=== PATIENT | male | born 1965 | race Hispanic/Latino ===

== ENCOUNTER 2018-07-12 18:49 | Inpatient (IN) ==
[2018-07-12] MEDS ORDERED: DILAUDID IV ONE ×2 (21:28→23:21)
--- NOTE | 2018-07-12 21:53 | PROVIDER DOCUMENTATION ---
This chart was entered by Renata Edmonds Scribe, acting as scribe for Sree Pacheco MD. HPI-Abdominal Pain/GI Problem - General Chief Complaint: Abdominal Pain Stated Complaint: ABD PAIN Time Seen by Provider: 07/12/18 19:25 Source: patient Allergies/Adverse Reactions: Patient Allergies Allergy/AdvReac Type Severity Reaction Status Date / Time No Known Allergies Allergy Verified 07/12/18 20:31 - History of Present Illness-ABD Nature of Presenting Problems: 52 yom c/o over 1 wk of nausea and abd pain ruq that rad into chest. pt was ad mitted to [facility] on wednesday and d/c yest. had ct done and was told he had gall stones. pt had appt today w/ dr and is getting gall bladder removed wednesday. pt denies diarrhea and vomiting. Abdominal Pain Onset Location: reports: RUQ Pain Radiation: reports: chest Quality of Pain: reports: aching Review of Systems - Adult - REVIEW OF SYSTEMS - ADULT Constitutional: reports: no symptoms reported. denies: chills, fever, fatique Eyes: reports: no symptoms reported Ears, Nose, Mouth & Throat: reports: no symptoms reported Cardiovascular: reports: no symptoms reported Respiratory: reports: no symptoms reported Gastrointestinal: reports: see HPI, abdominal pain (ruq), nausea. denies: constipation, diarrhea, difficulty swallowing, poor appetite, vomiting Genitourinary: reports: no symptoms reported Musculoskeletal: reports: no symptoms reported Integumentary: reports: no symptoms reported Neurological: reports: no symptoms reported Psychiatric: reports: no symptoms reported Endocrine: reports: no symptoms reported Hematologic/Lymphatic: reports: no symptoms reported Allergic/Immunologic: reports: no symptoms reported All Other Systems: Reviewed and Negative Past History - Adult - PAST MEDICAL HISTORY-ADULT Review of Records: reports: Old Records Reviewed, Nursing Assessment Review, Me dications Reviewed, Social history reviewed & non-contributory. Major Childhood Illnesses: reports: denies history Cardiovascular: reports: denies history Respiratory: reports: denies history Gastrointestinal: reports: denies history Obstetrical/Gynecological: reports: denies history Genitourinary: reports: denies history Musculoskeletal: reports: denies history Neurological: reports: denies history Endocrine/Immune: reports: denies history Other Conditions: reports: denies history - PRIOR SURGERIES/PROCEDURES Surgical/Procedure History: reports: none - IMMUNIZATION STATUS Childhood Immunizations: See Nurse Assessment Flu Vaccine: See Nurse Assessment - FAMILY HISTORY Family History: reviewed, not pertinent - SOCIAL HISTORY Smoking: non-smoker Substance Use: none/never Physical Exam-General - PHYSICAL EXAM-ADULT Initial Vital Signs Reviewed: Yes - CONSTITUTIONAL General Appearance: appears well, alert, mild distress, obese. negative: slow to respond, obtunded, combative - EYES Eyes: PERRL/EOMI, pink conjunctivae - HEAD, EARS, NOSE, MOUTH & THROAT HENMT: normocephalic/atraumatic, moist mucous membranes, normal ENT inspection - NECK Neck: non-tender, full range of motion, supple, normal inspection - RESPIRATORY Respiratory: chest non-tender, lungs clear, normal breath sounds - CARDIOVASCULAR Cardiovascular: normal peripheral pulses, regular rate, rhythm, no edema, no gallop, no JVD, no murmur. negative: JVD, bradycardia, tachycardia - GASTROINTESTINAL (ABDOMEN) Abdominal Exam: normal bowel sounds, soft, no organomegaly, no pulsatile mass, tenderness (ruq to palp). negative: non tender, abdominal bruit, abnormal bowel sounds, distended, guarding, rigid - LYMPHATIC Lymphatic: no adenopathy - MUSCULOSKELETAL Back Exam: normal inspection, no CVA tenderness, no vertebral tenderness Extremity: normal range of motion, non-tender, normal inspection Peripheral Pulses: radial (R): 2+, radial (L): 2+ - SKIN Integumentary: normal color, normal turgor, warm/dry - NEUROLOGIC Neurologic: grossly normal, no motor/sensory deficits - PSYCHIATRIC Psych/Mental Status: normal mood/affect, normal thought content, normal thought process, oriented x 3 Progress - PLAN OF CARE/RESULTS Progress/Plan/Lab Results: Vital Signs - 8 hr 07/12/18 19:04 Temperature 98.9 F Pulse Rate 90 Respiratory Rate 15 Blood Pressure 167/97 O2 Sat by Pulse Oximetry 98 Orders Category Date Time Status Saline Loc DIRECTED Care 07/12/18 21:18 Active NPO Diet 07/12/18 21:18 Active CBC WITH ELECTRONIC DIFF [HEME] Stat Lab 07/12/18 21:18 Uncollected COMPREHENSIVE METABOLIC PANEL [CHEM] Stat Lab 07/12/18 21:18 Uncollected LIPASE [CHEM] Stat Lab 07/12/18 21:18 Uncollected URINALYSIS W/POSS RFLX CULT [URINALYSIS] Stat Lab 07/12/18 21:18 Uncollected Result Diagrams: 07/12/18 22:50 07/12/18 22:50 - ULTRASOUND (By Radiology) 1 US Study: Gallbladder US Results: acute cholecytitis, gallstones, very large gallbladder - CONSULTS/PCP/HOSPITALIST Notification #1 *Consult/PCP/Hospitalist*: Dr. Ignacio, surgeon lead sales consultant Time Discussed: 00:30 Reason/Comments: admit , start Zosyn Consult Disposition: Admit Departure - Departure Date of Disposition Decision: 07/13/18 Time of Disposition Decision: 00:32 DIAGNOSIS: Acute cholecystitis Cholelithiasis Qualifiers: Cholelithiasis location: gallbladder Cholecystitis presence: with cholecystitis Cholecystitis acuity: acute Biliary obstruction: without biliary obstruction Qualified Code(s): K80.00 - Calculus of gallbladder with acute cholecystitis without obstruction Disposition: ADMITTED INPATIENT 09 Certified Medical Emergency: Emergent Condition: Stable Referrals and Follow-Ups: Roque Cowart [Primary Care Provider] - - Critical Care Note This patient required my direct & personal management of CC.: No Attestation - Physician/ JASMIN Attestation Patient care was provided by Advanced Practice Provider:: No The physician spent face to face time with patient:: Yes Advanced Practice Provider documentation review:: Supervising physician onsite and consulted in the evaluation and care of this patient. The physician did have a face to face encounter with the patient. This chart was documented by the indicated scribe, (Renata Edmonds Scribe) and accurately reflects the services I performed and decisions made by me, Sree Pacheco MD, as attested by the provider's signature.
[2018-07-12 23:08] LABS: BASO# 0.02 X1000 (0.0-0.2); BASO% 0.1 % (0.0-0.8); EOS% 0.6 % (0.0-10.0); HEMATOCRIT 30.9 % (42.0-52.0); HEMOGLOBIN 10.7 g/dL (14.0-18.0); IMM GRAN# 0.06 X1000 (0.0-0.04); IMM GRAN% 0.4 % (0.0-0.5); LYMPH# 1.21 X1000 (1.2-3.4); LYMPH% 7.6 % (20.5-51.1); MCH 25.2 PG (27-31); MCHC 34.6 g/dL (33-37); MCV 72.7 FL (81-99); MONO# 0.72 X1000 (0.11-0.59); MONO% 4.5 % (1.7-9.3); MPV 9.4 FL (7.4-10.4); NEUT# 13.72 X1000 (1.4-6.5); NEUT% 86.8 % (42.2-75.2); PLT 555 X1000 (130-400); RBC 4.25 XMIL (4.7-6.1); RDW 12.7 % (11.5-14.5); WBC 15.83 X1000 (4.8-10.8)
[2018-07-12 23:28] LABS: ALB/GLOB RATIO 0.4; ALBUMIN 1.9 g/dL (3.5-5.0); CALCIUM 8.1 mg/dL (8.8-10.2); CREATININE 1.9 mg/dL (0.7-1.2); POTASSIUM 2.9 mmol/L (3.5-5.1); TOTAL BILIRUBIN 0.55 mg/dL (0.20-1.00); TOTAL PROTEIN 6.2 g/dL (6.3-8.3)
[2018-07-12] MEDS ORDERED: ZOSYN 3.375 GM in NS 50 ML IV ONE (23:57)
[2018-07-13] MEDS ORDERED: ZOFRAN IV PRN (00:32)
[2018-07-13] MEDS ORDERED: NS 1,000 ML IV ONE (00:32)
[2018-07-13] MEDS ORDERED: DILAUDID IV PRN (00:32)
[2018-07-13] MEDS: ZOSYN 3.375 GM in NS 50 ML IV SCH ×4 (01:28→18:38)
[2018-07-13 01:40] LABS: URINE SOURCE CLEAN CATCH
[2018-07-13 01:46] LABS: BILIRUBIN URINE NEGATIVE (NEGATIVE); BLOOD URINE MODERATE (NEGATIVE); COLOR YELLOW; GLUCOSE URINE 500 mg/dL (NEGATIVE); KETONE URINE TRACE mg/dL (NEGATIVE); LEUKOCYTES URINE NEGATIVE (NEGATIVE); NITRITE URINE NEGATIVE (NEGATIVE); PH URINE 6.5; PROTEIN URINE 300 mg/dL (NEGATIVE); SP GRAVITY URINE 1.009; TURBIDITY URINE CLEAR (CLEAR); UROBILINOGEN URINE NORMAL (NORMAL)
[2018-07-13 01:48] LABS: UR EPITHELIAL CELLS <10 /HPF (<10); URINE BACTERIA NEGATIVE /HPF; URINE RBC <10 /HPF (<10)
[2018-07-13] MEDS ORDERED: PNEUMOVAX 23 IM ONE (02:23)
[2018-07-13 02:52] LABS: URINE CASTS NONE SEEN; URINE CRYSTALS NONE SEEN; URINE SMALL ROUND CELLS NONE SEEN; URINE YEAST NONE SEEN
[2018-07-13] MEDS ORDERED: SODIUM CHLORIDE 0.9% ONE (06:36)
[2018-07-13] MEDS ORDERED: XYLOCAINE-MPF 1% ONE (06:36)
[2018-07-13] MEDS ORDERED: SENSORCAINE-MPF 0.5%/EPI 1:200,000 ONE (06:36)
[2018-07-13] MEDS ORDERED: LR 1,000 ML ONE (06:36)
--- NOTE | 2018-07-13 06:36 | HISTORY AND PHYSICAL ---
DATE: 07/13/2018 HISTORY OF PRESENT ILLNESS: This is a 52-year-old gentleman who has had a several day history of abdominal discomfort. He presented to the Emergency Department after these symptoms worsen. His CT scan and ultrasound was performed that suggests cholecystitis with gallstones and enlarged gallbladder. He was started on antibiotics. He feels some better now. He prior to this has been in his usual state of health. No fevers. No tachycardia documented. MEDICAL HISTORY: 1. Hypertension. 2. Hyperlipidemia. 3. Diabetes. SURGICAL HISTORY: He has had a brain tumor resection. SOCIAL HISTORY: No tobacco, alcohol, or drugs. He is . 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 FAMILY HISTORY: Reviewed, noncontributory. PHYSICAL EXAMINATION: Vital signs: Temperature 98.9, pulse 80, blood pressure 140/74, oxygen saturation 97%. He is 246 pounds, 5 feet 6 inches. General: He is alert, in no acute distress. HEENT: No scleral icterus. No cervical mass. Cardiovascular: Normal rate. Pulmonary: No increased work of breathing. Abdomen: Soft, nontender, nondistended. Integument: Warm and dry without jaundice. Psychiatric: Appropriate affect. Neurologic: No gross deficits. Lymphatic: No cervical axillary or inguinal adenopathy. Peripheral vascular: Trace lower extremity edema. ASSESSMENT AND PLAN: This is a 50-year-old gentleman with cholecystitis. We discussed risks of bleeding, infection, damage to surrounding structures, conversion to open, bile leak, and anticipated recovery. He understands all this and consents to laparoscopic cholecystectomy with cholangiogram. We will go the operating room this morning for that. He is on antibiotics. cc: Bruce Ignacio MD
[2018-07-13] MEDS ORDERED: XYLOCAINE-MPF 2% ONE ×2 (06:38→08:44)
[2018-07-13] MEDS ORDERED: QUELICIN (DOSE) ONE (06:38)
[2018-07-13] MEDS ORDERED: ROBINUL ONE ×2 (06:38→09:11)
[2018-07-13] MEDS ORDERED: DIPRIVAN 1% ONE (06:40)
[2018-07-13] MEDS ORDERED: FENTANYL ONE (06:40)
[2018-07-13] MEDS ORDERED: ZEMURON ONE ×4 (06:42→10:09)
[2018-07-13] MEDS ORDERED: NEOSTIGMINE ONE (06:58)
[2018-07-13] MEDS ORDERED: HUMULIN R SUBQ SCH (07:00)
--- NOTE | 2018-07-13 07:27 | Diag Imaging Result Doc PS360 ---
EXAM: US GB < RUQ (LIMITED) HISTORY: RUQ abdomen pain TECHNIQUE: Right upper quadrant ultrasound COMPARISON: None. FINDINGS: The pancreas is obscured. No abdominal aortic aneurysm. The liver is enlarged measuring over 21 cm in length. There is fatty infiltration. No ascites in the right upper cord. The gallbladder is markedly distended measuring at least 13.9 x 10.8 x 9.6 cm. There is a large amount of sludge within it. There also appear to be several small stones. The patient is tender in the right upper quadrant. There is gallbladder wall thickening. Mild pericholecystic fluid. Normal right kidney. No hydronephrosis. IMPRESSION: 1.Acute cholecystitis 2.Hepatomegaly with fatty infiltration 3.A preliminary report was given at 12:23 AM Electronically signed by Anton Noel 07/13/2018 7:25 AM
--- NOTE | 2018-07-13 07:44 | Diag Imaging Result Doc PS360 ---
EXAM: CT ABDOMEN/PELVIS W/O CONTRAST INDICATION: ABD PAIN TECHNIQUE: This exam was performed using automated exposure control, adjustment of mA or kV according to patient size, and/or use of iterative reconstruction technique. COMPARISON: None. FINDINGS: The gallbladder is markedly distended and there is pericholecystic inflammatory change consistent with acute cholecystitis. There is also patchy calcification along the gallbladder wall indicating a porcelain gallbladder, which suggests a component of chronic cholecystitis as well with an increased risk of malignancy. There is also a large partially calcified stone lodged in the neck of the gallbladder measuring up to 1.8 cm. The liver is unremarkable with no intrahepatic dilatation. The spleen, pancreas, adrenal glands, kidneys, and urinary bladder are essentially unremarkable. The appendix is normal. The remainder of the GI tract is essentially unremarkable with no bowel wall thickening and no evidence of bowel obstruction. IMPRESSION: Large stone lodged in the gallbladder neck with a markedly distended gallbladder with surrounding inflammatory change consistent with acute cholecystitis. There are gallbladder wall calcifications as well suggesting that there is also likely a chronic component and an increased risk of gallbladder malignancy. Electronically signed by Darrius Edmonds 07/13/2018 7:41 AM
[2018-07-13] MEDS ORDERED: ZOFRAN ONE (08:28)
[2018-07-13] MEDS ORDERED: SODIUM CHLORIDE 0.9% 10 ML ONE ×2 (08:29→09:19)
[2018-07-13] MEDS ORDERED: NEO-SYNEPHRINE ONE (08:29)
[2018-07-13] MEDS ORDERED: PITRESSIN ONE (09:19)
[2018-07-13] MEDS ORDERED: DILAUDID ONE (11:14)
[2018-07-13] MEDS: DILAUDID ONE ×2 (11:17→11:20)
[2018-07-13] MEDS: HUMULIN R SUBQ SCH ×3 (16:14→21:56)
[2018-07-13] MEDS: MORPHINE IV PRN ×3 (16:18→21:57)
--- NOTE | 2018-07-13 18:24 | OPERATIVE NOTE ---
PROCEDURE DATE: 07/13/2018 PREOPERATIVE DIAGNOSIS: Acute cholecystitis. POSTOPERATIVE DIAGNOSIS: Acute purulent cholecystitis, possible gallbladder mass. PROCEDURE PERFORMED: Laparoscopic cholecystectomy. ESTIMATED BLOOD LOSS: 150 mL. SPECIMEN: Gallbladder. ANESTHESIA: General. INDICATION: This is an gentleman who presented with approximately a week history of abdominal discomfort. CT scan showed changes consistent with acute cholecystitis with porcelain changes of the gallbladder wall. OPERATIVE FINDINGS: There was a densely inflamed gallbladder with omental adhesions, very thickened calcified right, purulent bile, numerous stones including large impacted stone in the neck. The posterior wall of the gallbladder was necrotic and densely adherent to the gallbladder fossa. There was a mass-like lesion or possible chronic thickening of the lateral aspect of the infundibulum of the gallbladder. OPERATIVE NOTE: Risks, benefits and alternatives discussed with patient. He consented to the procedure, seen preoperatively. Surgical site was confirmed. He was taken to the operating room placed in supine position. General anesthesia induced without complication. All bony prominences were padded. Abdomen was prepped with chlorhexidine solution after hair was removed with clippers and draped in usual fashion. After time out, we made a supraumbilical midline incision carried this down to the fascia. We incised the fascia along the midline and opened the abdomen in a [*]fashion, placed a 12 mm Sridhar trocar. We insufflated the abdomen and placed three additional trocars 5 mm at the epigastrium, one in the midclavicular line off the costal margin, and one more laterally. We did take down omental adhesions for better part of an hour to expose the gallbladder. We did decompress the gallbladder and retracted it cephalad. Using blunt dissection and the laparoscopic suction metal products viewer, we began taking down starting laterally the omental cake adhesions to the lateral aspect of the infundibulum. It became very densely inflamed and fibrotic towards the portal structures. We did not continue our dissection here. There did appear to be, although unusual, a contained perforation of the gallbladder medially. There was a very thickened mass-like change laterally. Unclear if this is a neoplastic process, but this was removed. We could not establish a critical view despite greater than an hour of working. We did encounter an arterial bleeder lateral to the gallbladder, appeared to be entering into the mass-like lesion. We controlled this, but we did sustain an additional amount of bleeding from this. We entered the gallbladder in a dome down fashion from the internal aspect of the gallbladder, confirmed our anatomy. Please also note we had to up size our epigastric trocar to 11 mm and placed an additional 11 mm for a fan retractor. The gallbladder was very thick and almost a cm thick wall, if not greater than some areas. Inspection internally we had carried our dissection down to the infundibulum, but no lower than that and could not identify the orifice to the cystic duct. And there was no fresh bile noted emanating from any region of the gallbladder. As such, we used the LigaSure to excise the anterior wall of the gallbladder, passing it off in its entirety, collecting all the stones. We could not separate the posterior wall from the gallbladder fossa. We fulgurated this necrotic mucosa of the gallbladder, irrigated copiously, and placed a Alphonse drain in the gallbladder fossa. Again, we noted no bile leaking. There was no significant bleeding at this point. We secured the Alphonse drain with a 2-0 nylon. We then removed the remaining trocars under direct visualization and then closed all the 11 and 12 mm trocar sites with interrupted 0 Vicryl sutures. Skin was closed with surgical clips. Dressing was applied. His drain was serosanguineous at the end of the case. He tolerated this well. I did speak with the family who will observe him in the next couple days to ensure he does not develop a bile leak. We will continue on antibiotics as well. cc: Bruce Ignacio MD
[2018-07-13] MEDS: PERIDEX MT SCH (21:56)
[2018-07-13] MEDS: TYLENOL PO PRN (23:15)
[2018-07-14] MEDS: ZOSYN 3.375 GM in NS 50 ML IV SCH ×5 (00:55→17:57)
[2018-07-14] MEDS: HUMULIN R SUBQ SCH ×4 (06:29→22:43)
[2018-07-14 07:52] LABS: BASO# 0.03 X1000 (0.0-0.2); BASO% 0.2 % (0.0-0.8); EOS# 0.13 X1000 (0.0-0.7); EOS% 0.9 % (0.0-10.0); HEMATOCRIT 27.8 % (42.0-52.0); HEMOGLOBIN 9.3 g/dL (14.0-18.0); IMM GRAN# 0.09 X1000 (0.0-0.04); IMM GRAN% 0.7 % (0.0-0.5); LYMPH# 1.11 X1000 (1.2-3.4); MCH 25.1 PG (27-31); MCHC 33.5 g/dL (33-37); MCV 74.9 FL (81-99); MONO# 0.82 X1000 (0.11-0.59); MONO% 5.9 % (1.7-9.3); MPV 9.1 FL (7.4-10.4); NEUT# 11.64 X1000 (1.4-6.5); NEUT% 84.3 % (42.2-75.2); PLT 615 X1000 (130-400); RBC 3.71 XMIL (4.7-6.1); RDW 13.1 % (11.5-14.5); WBC 13.82 X1000 (4.8-10.8)
[2018-07-14 08:04] LABS: ALB/GLOB RATIO 0.4; ALBUMIN 1.6 g/dL (3.5-5.0); CALCIUM 7.4 mg/dL (8.8-10.2); CREATININE 4.3 mg/dL (0.7-1.2); MAGNESIUM 1.8 mg/dL (1.5-2.7); TOTAL BILIRUBIN 0.53 mg/dL (0.20-1.00); TOTAL PROTEIN 5.6 g/dL (6.3-8.3)
[2018-07-14] MEDS: MORPHINE IV PRN ×3 (10:21→22:50)
[2018-07-14] MEDS: PERIDEX MT SCH ×2 (11:43→22:42)
[2018-07-14] MEDS ORDERED: LR 500 ML IV ONE (17:34)
[2018-07-14] MEDS: LR 1,000 ML IV SCH (17:53)
--- NOTE | 2018-07-14 19:29 | GENERAL SURGERY PROGRESS NOTE ---
DATE: 07/14/2018 SUBJECTIVE: Doing okay. Feels much better. His incisions are intact. DOREEN drain serosanguineous. OBJECTIVE: I reviewed his vital signs. He did have some fevers overnight, but this improved over the course of the day. No fevers. No tachycardia. Otherwise, no fevers this morning. His abdomen is soft. Incision is intact. DOREEN drain serosanguineous. White count is down to 13, hematocrit 27, creatinine is up to 4.3 this morning. His potassium is 3.0, glucose 189 [*]290s. ASSESSMENT/PLAN: This is a 52-year-old gentleman status post purulent cholecystectomy. We will need to continue hydrating him. He does have some worsening of his renal dysfunction. His glucose remained high. LFTs were appropriate. His DOREEN drain was serosanguineous. We will monitor him closely tonight. Hemodynamically stable and overall, clinically looks better. cc: Bruce Ignacio MD
[2018-07-15] MEDS: ZOSYN 3.375 GM in NS 50 ML IV SCH ×3 (01:44→11:45)
[2018-07-15] MEDS: MORPHINE IV PRN ×2 (01:54→20:40)
[2018-07-15] MEDS: LR 1,000 ML IV SCH (07:01)
[2018-07-15] MEDS: HUMULIN R SUBQ SCH ×4 (07:02→21:45)
[2018-07-15] MEDS: PERIDEX MT SCH (09:51)
[2018-07-15 11:17] LABS: ALB/GLOB RATIO 0.5; ALBUMIN 2.1 g/dL (3.5-5.0); CALCIUM 7.3 mg/dL (8.8-10.2); POTASSIUM 3.2 mmol/L (3.5-5.1); TOTAL BILIRUBIN 0.39 mg/dL (0.20-1.00); TOTAL PROTEIN 6.3 g/dL (6.3-8.3)
[2018-07-15] MEDS ORDERED: LANTUS INSULIN SUBQ ONE (15:27)
--- NOTE | 2018-07-15 15:46 | GENERAL SURGERY PROGRESS NOTE ---
DATE: 07/15/2018 SUBJECTIVE: He is ambulating the halls. He is feeling better. No fevers. No tachycardia. Blood pressures have been okay. OBJECTIVE: Abdomen: His abdomen is soft. Incision intact. Donis-Ambrosio drain serosanguineous but slightly cloudy. LABORATORY DATA: His creatinine is up to 5 from 4.3 yesterday. Potassium is 3.2. Glucose has been high in the 100s to 200s. LFTs are improving. Bilirubin, AST, and ALT are normal. Alkaline phosphatase downtrending. ASSESSMENT AND PLAN: This is a 52-year-old gentleman status post cholecystectomy for purulent gangrenous cholecystitis. He does having acute rising of his creatinine. I have ordered urine studies and ultrasound. I have also consult Dr. Edouard and the hospitalist for further input regarding this possibility. Most likely, his ATN is early septic type picture but will monitor him going forward. He does look good clinically and he seems to be making urine. Suspect this will resolve. cc: Bruce Ignacio MD
[2018-07-15] MEDS ORDERED: NS + KCL 20 MEQ 1,000 ML IV SCH (16:00)
--- NOTE | 2018-07-15 16:05 | NEPHROLOGY CONSULTATION ---
DATE: 07/15/2018 REASON FOR CONSULTATION: Acute kidney injury. HISTORY OF PRESENT ILLNESS: Mr. Linares is a 52-year-old man with abdominal pain who was evaluated at [facility] and treated with antibiotics without improvement so he came to the emergency room at this facility. Creatinine was 1.9 on presentation. His initial assessment found him to be hypertensive and heart rate was 90. He was examined using CT of the abdomen which demonstrated acute cholecystitis and he underwent laparoscopic cholecystectomy after antibiotic therapy. He was hypotensive during his stay in the operating room, but his postoperative course has been remarkable otherwise. In this context, his creatinine was 1.9 on presentation and has risen progressively to over 5. Urine output is acceptable. He has not had any further hypotension. No IV contrast. No nonsteroidals. PAST MEDICAL HISTORY: Hypertension, diabetes. HOME MEDICATIONS: Include cefdinir, clonidine, glimepiride. Metformin recently discontinued. ALLERGIES: None. SOCIAL HISTORY: He is , lives with his who is at the bedside. No alcohol or tobacco. FAMILY HISTORY: Positive for hypertension, diabetes. REVIEW OF SYSTEMS: Noncontributory. PHYSICAL EXAMINATION: Vital Signs: Blood pressure 141/76, heart rate 87, respirations 14, afebrile. General: Obese man. No acute distress. Skin: Warm and dry. HEENT: Conjunctivae are pink. Pupils are equal. Oropharynx is moist. Dentition normal. Neck: Supple. Trachea is midline. Neck veins are not distended. Heart: Regular. No gallops or murmurs. S4 is present. Lungs: Have equal breath sounds. No crackles or wheezes. Abdomen: Distended, obese, soft, moderately tender. Post surgical dressings are in place. Bowel sounds are present. Extremities: With no edema, no clubbing or cyanosis. IMPRESSION: Acute kidney injury. Presumably acute tubular necrosis following sepsis and hypotension. He needs repeat abdominal imaging and IV fluids. His medications have been reviewed and no changes required today with the exception of moderating his Zosyn dose which I will do. We will follow with you. cc: MD Bruce Harrison MD
[2018-07-15 16:20] LABS: BILIRUBIN URINE NEGATIVE (NEGATIVE); BLOOD URINE TRACE (NEGATIVE); COLOR YELLOW; GLUCOSE URINE 150 mg/dL (NEGATIVE); KETONE URINE NEGATIVE (NEGATIVE); LEUKOCYTES URINE NEGATIVE (NEGATIVE); NITRITE URINE NEGATIVE (NEGATIVE); PH URINE 6.5; PROTEIN URINE 100 mg/dL (NEGATIVE); TURBIDITY URINE CLEAR (CLEAR); URINE SOURCE VOIDED; UROBILINOGEN URINE NORMAL (NORMAL)
[2018-07-15 16:21] LABS: UR EPITHELIAL CELLS <10 /HPF (<10); URINE BACTERIA NEGATIVE /HPF; URINE RBC <10 /HPF (<10); URINE WBC <10 /HPF (<10)
[2018-07-15 16:37] LABS: UR CREAT RANDOM 27.9 mg/dL (14-26)
--- NOTE | 2018-07-15 16:52 | Diag Imaging Result Doc PS360 ---
EXAM: US RENAL 2 (RETROPER) COMPLETE INDICATION: drew TECHNIQUE: COMPARISON: Abdominal ultrasound dated 07/12/2018 FINDINGS: The kidneys are grossly normal in echotexture with no discrete renal mass or hydronephrosis. The right kidney measures 12.9 cm and the left kidney measures 12.4 cm in the greatest dimensions. Right renal cortex measures up to 1.4 cm and the left renal cortex measures up to 1.3 cm in thickness. The urinary bladder is unremarkable IMPRESSION: Unremarkable renal ultrasound. Electronically signed by Darrius Edmonds 07/15/2018 4:50 PM
[2018-07-15] MEDS: NS 1,000 ML IV SCH ×2 (17:06→17:12)
--- NOTE | 2018-07-15 18:01 | CONSULTATION ---
DATE OF CONSULTATION: 07/15/2018 CHIEF COMPLAINT: Uncontrolled diabetes, acute kidney injury, status post cholecystectomy. HISTORY OF PRESENT ILLNESS: A 52-year-old male with a past medical history of diabetes, hypertension and possible hyperlipidemia admitted on 07/13/2018 due to abdominal pain, he presented to emergency department after around 2 weeks of abdominal pain and nausea, he was evaluated by Surgery Department and the diagnosis of cholecystitis has been made. Abdominal ultrasound showed a large stone lodged in the gallbladder neck with a markedly distended gallbladder with surrounding inflammatory changes consistent with acute cholecystitis. There are gallbladder wall calcifications as well as suggesting that there is also likely a chronic component and an increased risk of gallbladder malignancy. He went to the OR on 07/13/2018 and laparoscopic cholecystectomy was performed. It looks like the blood pressure dropped during the procedure, upon admission his potassium level was 2.9, his BUN 33 and creatinine 1.9, glucose level 277 and calcium level 8.1, albumin 1.9. Negative lipase and negative lactate level. The day after the procedure we noticed that the BUN and creatinine increased to 36 and 4.3 respectively and continues to increase to 39 and 5 today, his blood sugar is been uncontrolled mostly in the high 200s and even in the 400s range, we have been consulted to monitor this patient, to evaluate and try to control his blood sugar and kidney dysfunction. An ultrasound of the kidney has been already ordered as well as urine studies, I will ask for a hemoglobin A1c, lipid profile, I will give him a dose of long-acting insulin today and I will continue with pattern blood sugar and sliding scale insulin. This patient is full code. All their questions were answered. REVIEW OF SYSTEMS: All the 14 points of review of systems were reviewed all of them negative except as per HPI. Today he is tolerating a little bit of his liquid diet, he has not been gaining or losing weight, no nausea or vomiting today. No headache. No chest pain, he is complaining of some abdominal discomfort due to the surgery. PAST MEDICAL HISTORY: Diabetes, hypertension and possible hyperlipidemia. PAST SURGICAL HISTORY: He had a brain tumor removed in 2008 and the patient has been told that it was benign, also he had 2 I and Ds on the left lower extremity due to a spider bite. FAMILY HISTORY: Mother and brother with hypertension. HOME MEDICATIONS: Cefdinir 300 mg p.o. b.i.d., clonidine 0.1 mg transdermal daily and glimepiride 2 mg p.o. daily, also as per the patient before taking glimepiride he was on lisinopril and metformin. He does not remember the dose. PHYSICAL EXAMINATION: Temperature 97.4 degrees, pulse 87, respiratory rate 14, blood pressure 141/76, oxygen saturation 95 on room air. HEENT: Head normocephalic. No trauma. PERRLA. Neck: Is supple. No JVD. No masses. Central trachea. Chest: Clear to auscultation decreased at the bases. No wheezing. No rales. Abdomen: Soft. Mild to moderately distended. Positive bowel sounds. Generalized tenderness to palpation mostly at the level of the right upper quadrant, he does have multiple small scars and they look clean, dry and intact. Extremities: No edema, no clubbing, no cyanosis. Neurologic: The patient is alert and oriented x3. No focal neurological deficit. LABORATORY: Sodium 135, potassium 3.2, chloride 101, bicarbonate 18, BUN 39, creatinine 5, glucose 281, calcium 7.3, AST 33, ALT 37, alkaline phosphatase 289, albumin 2.1. ASSESSMENT AND PLAN: 1. Cholecystitis status post laparoscopic cholecystectomy postoperative day #2, it looks like he is tolerating p.o. He has been passing gases, no bowel movement so far, as per the patient and the he has been urinating fine, they did not notice any change in the urine. 2. Uncontrolled type 2 diabetes, I will give him a dose of glargine today and I will get a hemoglobin A1c in the morning, recently this patient has been placed on glimepiride 2 mg p.o. daily but before that he was taking metformin which has been stopped, I will continue to monitor and like I said he will receive a dose of Lantus today and I will recheck this patient in the morning. 3. Likely acute on chronic kidney disease, probably related to acute tubular necrosis, upon admission his creatinine was 1.9, I am requesting some lab work that has been done 8 days ago at [facility], apparently he went there for the same issue, abdominal pain, his creatinine is going up today is 5 and the BUN 39, he refused to use a Resendiz catheter but I asked the patient to keep the urine so we can measure the urine output. 4. It looks like he had some episodes of hypotension during the procedure, Nephrology Department has been consulted. 5. Possible hyperlipidemia pending lipid profile. 6. Morbid obesity with a body mass index of 39.8, diet and exercise has been discussed. 7. This patient today seems to be stable, his BUN and creatinine are trending up, blood sugars is not controlled, I will give him a dose of Lantus today and I will monitor this patient in the morning again. He is tolerating his liquid diet, I will put him on normal saline at 125 mL/hour to see how he does, we will get a new lab work in the morning. Thank you so much for the consult. cc: MD Bruce Rodriguez MD
[2018-07-15] MEDS: ZOSYN 2.25 GM in NS 50 ML IV SCH (20:02)
[2018-07-15 20:57] LABS: BASO# 0.04 X1000 (0.0-0.2); BASO% 0.3 % (0.0-0.8); EOS# 0.36 X1000 (0.0-0.7); EOS% 2.9 % (0.0-10.0); HEMATOCRIT 28.9 % (42.0-52.0); HEMOGLOBIN 9.6 g/dL (14.0-18.0); IMM GRAN% 0.8 % (0.0-0.5); LYMPH# 1.19 X1000 (1.2-3.4); LYMPH% 9.5 % (20.5-51.1); MCH 25.1 PG (27-31); MCHC 33.2 g/dL (33-37); MCV 75.7 FL (81-99); MONO# 0.88 X1000 (0.11-0.59); MONO% 7.1 % (1.7-9.3); MPV 9.1 FL (7.4-10.4); NEUT% 79.4 % (42.2-75.2); PLT 709 X1000 (130-400); RBC 3.82 XMIL (4.7-6.1); RDW 13.4 % (11.5-14.5); WBC 12.47 X1000 (4.8-10.8)
[2018-07-15] MEDS: TYLENOL PO PRN (21:51)
[2018-07-16] MEDS: PERIDEX MT SCH ×3 (00:22→23:38)
[2018-07-16] MEDS: MORPHINE IV PRN ×4 (04:00→18:55)
[2018-07-16] MEDS: ZOSYN 2.25 GM in NS 50 ML IV SCH ×3 (04:00→20:45)
[2018-07-16] MEDS: HUMULIN R SUBQ SCH ×4 (06:40→21:30)
[2018-07-16 07:00] LABS: HEMOGLOBIN A1C 10.6 % (4.8-6.0)
[2018-07-16 07:20] LABS: CHOLESTEROL 120 mg/dL (0-200); HDL 14 mg/dL (35-55); LDL 75 mg/dL; TRIGLYCERIDES 157 mg/dL (39-160); VLDL 31 mg/dL
[2018-07-16 07:35] LABS: ALBUMIN 1.8 g/dL (3.5-5.0); CREATININE 5.5 mg/dL (0.7-1.2); PHOSPHORUS 5.5 mg/dL (2.7-4.5); POTASSIUM 3.4 mmol/L (3.5-5.1)
--- NOTE | 2018-07-16 08:07 | GENERAL SURGERY PROGRESS NOTE ---
DATE: 07/16/2018 SUBJECTIVE: Patient seems to be doing okay. He says he is feeling better. OBJECTIVE: Vital Signs: Patient is currently afebrile. His vital signs are stable. General: No acute distress. Cardiovascular: Regular rate and rhythm. Lungs: Grossly clear. Abdomen: Soft, appropriately tender. DOREEN drain in place, looks more on the sanguinous site of serosanguineous. LABORATORY DATA: Currently pending this morning. Urine output has been almost 3 L. ASSESSMENT AND PLAN: This is a 52-year-old gentleman status post cholecystectomy for purulent gangrenous cholecystitis. 1. Postoperative state. At this time, he seems to be doing okay just from a purely surgical point of view. His Donis-Ambrosio drain is in place. It does not seem to be bilious at this time. Would like to continue to monitor. 2. Elevated creatinine. At this time, Dr. Edouard with Nephrology has been consulted and we will see how his creatinine trends. It might be related to acute tubular necrosis, but will follow up with their recommendations. 3. Hypertension. At this time, I appreciate the Hospitalist's help. They are following along also. cc: MD Bruce Tejada MD
[2018-07-16] MEDS: NS 1,000 ML IV SCH ×3 (09:29→23:37)
[2018-07-16] MEDS ORDERED: APRESOLINE IV PRN (11:44)
[2018-07-16] MEDS ORDERED: SOLU-MEDROL IV ONE (12:17)
[2018-07-16] MEDS: LANTUS INSULIN SUBQ SCH (12:59)
--- NOTE | 2018-07-16 18:07 | PROGRESS NOTE ---
DATE: 07/16/2018 SUBJECTIVE: This patient is resting in bed. He is complaining of severe bilateral ankle pain and right knee pain. The right ankle looks a little bit swollen compared with the left ankle. It looks like, as per the patient, apparently he has been having gout before, and this seems to be the symptoms that he had before. I checked his uric acid and it is 6.9, which is borderline high. Given his symptoms and basically his current presentation, I will start giving this patient steroids. I cannot use NSAIDs due to his acute kidney injury. Colchicine might be an option, but since this patient recently had an abdominal surgery, he is a bit distended but tolerating fluids, and on top of that he had acute kidney injury, I would prefer to use IV steroids for now. Likely the blood glucose will increase. OBJECTIVE: Vital signs: Temperature 99.7, pulse 94, respiratory rate 14, saturation 94% on room air. HEENT: Head normocephalic. No trauma. PERRLA. Neck supple. No JVD. Central trachea. Chest clear to auscultation. Some crepitus at the bases. Abdomen is soft. Mild to moderately distended. Positive bowel sounds. Generalized tenderness to palpation, mostly at the level of the right quadrant. He does have multiple scars, and they look clean and intact. Extremities: His right ankle looks a little bit swollen compared with the left ankle. He has pain on his right knee and ankles bilaterally. Neurological: The patient is alert and oriented x3. No focal deficits. LABORATORY DATA: Sodium 140, potassium 3.4, chloride 106, bicarbonate 19, BUN 39, creatinine 5.5, glucose 133, calcium 7, phosphorus 5.5, albumin 1.8. ASSESSMENT AND PLAN: 1. Cholecystitis, status post laparoscopic cholecystectomy, postoperative day #3. It looks like he is tolerating liquid diet. He has been passing gas. No bowel movement so far. We will continue to monitor. Surgery Department on board. 2. Uncontrolled type 2 diabetes. I have placed this patient on glargine 15 units daily, but now since this patient is using intravenous steroids, probably we need to increase the dose of Lantus tomorrow. Hemoglobin A1c is elevated at 10.6, so likely this patient will need to be discharged home with insulin and p.o. treatment. 3. Iqceb-tm-[id number]-chronic kidney disease, likely related to acute tubular necrosis. Upon admission his creatinine was 1.9. BUN today about the same compared with yesterday, but the creatinine increased a little bit. He is making good urine, so we will continue just to monitor. No criteria for dialysis at this moment. 4. Acute gout flare. As mentioned before, I will put this patient on intravenous steroids. Likely the blood sugar will increase but he has been having severe pain at the level of the ankles and right knee. His uric acid is borderline high and he has been having gout flares before, and as per the patient this looks like the previous symptoms. We will avoid nonsteroidal anti-inflammatory drugs. 5. It looks like this patient had some episodes of hypotension during the surgical procedure, and this is why probably the acute kidney injury on chronic kidney disease. We will monitor. 6. Possible hyperlipidemia. Stable. 7. Morbid obesity with a body mass index of 39.8. Diet and exercise has been discussed. 8. Low calcium. Corrected with albumin is basically normal. We will monitor. 9. Hypertension. We will continue using hydralazine as needed. cc: Shelton Juárez MD
[2018-07-16] MEDS: SOLU-MEDROL IV SCH (20:45)
[2018-07-17] MEDS: NS 1,000 ML IV SCH ×5 (03:07→23:05)
[2018-07-17] MEDS: ZOSYN 2.25 GM in NS 50 ML IV SCH ×3 (03:07→22:09)
[2018-07-17] MEDS: MORPHINE IV PRN ×2 (06:21→16:55)
[2018-07-17 06:37] LABS: BASO# 0.01 X1000 (0.0-0.2); BASO% 0.1 % (0.0-0.8); HEMATOCRIT 32.1 % (42.0-52.0); HEMOGLOBIN 10.6 g/dL (14.0-18.0); IMM GRAN# 0.08 X1000 (0.0-0.04); IMM GRAN% 0.7 % (0.0-0.5); LYMPH# 0.63 X1000 (1.2-3.4); LYMPH% 5.4 % (20.5-51.1); MCH 24.8 PG (27-31); MCV 75.2 FL (81-99); MONO# 0.27 X1000 (0.11-0.59); MONO% 2.3 % (1.7-9.3); MPV 8.8 FL (7.4-10.4); NEUT# 10.62 X1000 (1.4-6.5); NEUT% 91.5 % (42.2-75.2); PLT 930 X1000 (130-400); RBC 4.27 XMIL (4.7-6.1); RDW 13.2 % (11.5-14.5); WBC 11.61 X1000 (4.8-10.8)
[2018-07-17] MEDS: HUMULIN R SUBQ SCH ×5 (06:48→22:03)
--- NOTE | 2018-07-17 07:03 | GENERAL SURGERY PROGRESS NOTE ---
DATE: 07/17/2018 SUBJECTIVE: Patient seems to be doing okay. OBJECTIVE: Vital Signs: The patient is currently afebrile. His vital signs are stable. General Examination: No acute distress. Cardiovascular: Regular rate and rhythm. Lungs: Grossly clear. Abdomen: Soft. Appropriately tender. DOREEN drain in place with just what looks like serosanguineous output. Laboratory: Of note, reviewed his labs yesterday. His creatinine has gone to 5.5. ASSESSMENT AND PLAN: A 52-year-old gentleman status post laparoscopic cholecystectomy. 1. Postoperative state. At this time, Donis-Ambrosio drain is in place. It does not look like bilious output but we will monitor at least another day and have Dr. Ignacio look at it. 2. Elevated creatinine. At this time, his creatinine is still trending up. It may be related to acute tubular necrosis but he does have urine output so we will defer to Dr. Edouard, nephrology, on further treatment. 3. Hypertension. At this time, hospitalist on board. We have started him on medication. cc: MD Shelton Tejada MD
[2018-07-17 07:12] LABS: ALBUMIN 2.1 g/dL (3.5-5.0); CREATININE 5.1 mg/dL (0.7-1.2); PHOSPHORUS 4.7 mg/dL (2.7-4.5); POTASSIUM 3.6 mmol/L (3.5-5.1)
[2018-07-17 07:19] LABS: LYMPHS 4 % (21-51); SEGS 94 % (42-75)
[2018-07-17] MEDS: SOLU-MEDROL IV SCH ×2 (11:06→22:04)
[2018-07-17] MEDS: LANTUS INSULIN SUBQ SCH (11:07)
[2018-07-17] MEDS: PERIDEX MT SCH ×2 (11:08→22:04)
[2018-07-17] MEDS ORDERED: HUMULIN R SUBQ ONE ×2 (12:42→18:01)
--- NOTE | 2018-07-17 13:12 | PROGRESS NOTE ---
DATE: 07/17/2018 INTERVAL HISTORY: The patient's ankle and knee pain resolved. No abdominal pain. Urine output reasonable. No acute events overnight. No new complaints. REVIEW OF SYSTEMS: A 12-point review of systems was negative except as per Interval History. LABORATORIES: WBC 11.6, hemoglobin 10.6, hematocrit 32.1, platelets 930,000. Sodium 133, potassium 3.6, bicarbonate 15, BUN 40, creatinine 5.1, glucose 358, calcium 7, albumin 2.1, phosphorus 4.7, magnesium 1.7. VITALS: Temperature maximum 99.5 degrees, pulse 67, respirations 20, blood pressure 169/84, O2 saturation 99% on room. PHYSICAL EXAMINATION: General: No acute distress. Vitals: As above. HEENT: Normocephalic, atraumatic. Moist mucous membranes. Neck: No cervical adenopathy. Cardiovascular: Regular rate and rhythm. No murmurs, rubs, or gallops. Pulmonary: Largely clear to auscultation bilaterally. No wheezing, rales, or rhonchi noted. Abdomen: Soft and nontender with bowel sounds positive. Extremities: Peripheral pulses intact. No clubbing, cyanosis, or edema. No further joint swelling or tenderness. Neurologic: Cranial nerves grossly intact. No focal deficits identified. Psychiatric: Normal mood and affect. Awake, alert, oriented x3. Skin: No new rashes or lesions identified. ASSESSMENT AND PLAN: 1. Acute kidney injury on likely chronic kidney disease 3. Exact baseline unknown, but creatinine 1.9 on admission. Significantly worsened postoperatively. Trended up to 5.5 yesterday, slightly improved to 5.1 today. May be starting to turn around, but too early to say for certain. Urine output remains reasonable. No strict criteria for dialysis at this time, but Nephrology is following. 2. Cholecystitis status post laparoscopic cholecystectomy. Tolerating diet thus far. Continue to monitor. Surgery on board and managing. 3. Diabetes mellitus. Glucose control worsened with the initiation of steroids for his gout yesterday. We will increase the basal insulin and give a dose of regular to try to get it a little better controlled. Continue to monitor glucoses. A1c 10.6. 4. Gout flare. The patient yesterday with knee and ankle pain, which was likely gout related, now resolved with steroids. 5. Hyperlipidemia, stable. 6. Obesity, borderline morbid with a Body Mass Index of 39.89. Exercise discussed. 7. Hypertension. Patient with a couple of brief episodes of hypertension postoperatively so we will hold off scheduling blood pressure medications for now. Does have some occasional significant elevations. Continue hydralazine p.r.n. If he continues to remain consistently elevated, we will consider scheduling blood pressure medicine. 8. Hypocalcemia, corrected to essentially normal albumin. If it worsens, we will get ionized calcium in the morning.
[2018-07-18] MEDS: HUMULIN R SUBQ SCH ×5 (00:48→23:40)
[2018-07-18] MEDS: ZOSYN 2.25 GM in NS 50 ML IV SCH ×3 (04:15→23:38)
[2018-07-18 07:22] LABS: CALCIUM 7.2 mg/dL (8.8-10.2); CREATININE 4.7 mg/dL (0.7-1.2); PHOSPHORUS 4.6 mg/dL (2.7-4.5)
[2018-07-18] MEDS: SOLU-MEDROL IV SCH ×2 (09:55→23:39)
[2018-07-18] MEDS: PERIDEX MT SCH ×2 (09:56→23:39)
[2018-07-18] MEDS: NS 1,000 ML IV SCH ×3 (09:58→23:36)
[2018-07-18] MEDS: LANTUS INSULIN SUBQ SCH (10:06)
[2018-07-18] MEDS ORDERED: KLOR-CON PO ONE (11:18)
[2018-07-18] MEDS: SODIUM BICARBONATE PO SCH ×2 (12:36→23:42)
--- NOTE | 2018-07-18 13:24 | NEPHROLOGY PROGRESS NOTE ---
DATE: 07/18/2018 SUBJECTIVE: Mr. Linares is sitting up in a chair. His family is lying in his bed. He states that he is feeling much better. OBJECTIVE: Vital Signs: His most recent vital signs show temperature 97.6, blood pressure 142/76, heart rate 60, respirations 16. He is on room air with last recorded saturation 98%. He has had 3918 in and 2950 out to void with 5 mL to his drain. General: This is a 52-year-old male, sitting up quietly in a chair. He is in no acute distress. Skin: Warm and dry. HEENT: Normocephalic, atraumatic. Conjunctivae pale. He has POONAM. Mucous membranes are dry. Neck: Supple. Trachea midline. No evidence of JVD. Cardiovascular: He is regular rate and rhythm. No murmur or gallop appreciated. Lungs: Clear to auscultation bilaterally. Equal excursion on room air. Abdomen: Soft, nontender. Positive bowel sounds. Genitourinary: Not inspected. Patient has adequate urine output to Resendiz catheter. Extremities: Have trace to 1+ lower extremity edema. These are dependent. No clubbing or cyanosis. Neurological: He is alert and oriented x3. LABORATORY STUDIES: Sodium 134, potassium 3, chloride 104, CO2 16, BUN 44, creatinine 4.7, glucose 128. The patient has an anion gap of 14, calcium is 7.2, phosphorus is 4.6. He has an albumin of 2. Previous hemoglobin of 10.6. ASSESSMENT AND PLAN: 1. Acute kidney injury on chronic kidney disease, stage 3. Patient's baseline creatinine is unknown. More than likely acute tubular necrosis secondary to sepsis and hypotension. His BUN and creatinine are stable today. Creatinine is actually down to 4.7 from 5.1. Adequate urine output is documented. No indications for intervention. 2. Electrolytes and acid-base balance. Patient has hypokalemia with a potassium of 3. We will treat with potassium today and re-evaluate his labs in the a.m. 3. Acid-base balance. Patient has a CO2 of 16. We will treat with sodium bicarbonate orally. 4. Anemia. This remains low but stable. 5. Acute cholecystitis with cholelithiasis. The patient continues with a DOREEN drain in place. He remains on IV antibiotics. No further indications for intervention. I would to thank you for allowing us to follow with this patient. Dictated by ELIZABETH Guevara for Davide Edouard MD Face to face encounter, data reviewed, discussed with David Magallon on 07/18/18. I agree with the above assessment and plan of care. cc: ELIZABETH Guevara MD [facility]
--- NOTE | 2018-07-18 14:02 | PROGRESS NOTE ---
DATE: 07/18/2018 HISTORY: Patient's joint pain remains resolved. No significant abdominal pain. Urine output remains reasonable. No acute events overnight. No new complaints. REVIEW OF SYSTEMS: 12 point review of systems is negative except as per interval history. LABS: Sodium 134, potassium 3.0, bicarb 16, BUN 44, creatinine 4.7, glucose 128, calcium 7.2, phosphorus 4.6. VITALS: T-max 98.9 degrees, pulse 61, respirations 16, blood pressure 159/86, O2 saturation 94% on room air. PHYSICAL EXAM: General: No acute distress. Vitals as above. HEENT: Normocephalic, atraumatic. Moist mucous membranes. No cervical adenopathy. Cardiovascular: Regular rate and rhythm. No murmurs, rubs or gallops. Pulmonary: Clear to auscultation bilaterally. Abdomen: Soft, nontender, nondistended. Drain remains in place. Extremities: Peripheral pulses intact. No clubbing, cyanosis or edema. Neurologic: Cranial nerves grossly intact. No focal deficits identified. Psychiatric: Normal mood and affect. Awake, alert, oriented x3. Skin: No new rashes or lesions identified. ASSESSMENT AND PLAN: 1. Acute kidney injury on likely chronic kidney disease 3. Exact baseline unknown but creatinine 1.9 on admission. Significantly worsened postoperatively. Trend up to a maximal 5.5. Now trending down over the last couple days down to 4.7. Nephrology following, will await further recommendations from Nephrology. 2. Cholecystitis status post laparoscopic cholecystectomy tolerating diet so far. Drain remains in place. Surgery on board and managing. 3. Diabetes mellitus, glucose control improved with increase in basal and bolus insulin. A1c 10.6. 4. Gout flare. Patient with knee and ankle pain now resolved with steroids. 5. Hypokalemia. Replacing as per Nephrology and monitor. 6. Metabolic acidosis likely renal tubular acidosis related to kidney dysfunction. Oral bicarb as per Nephrology and monitor. 7. Hyperlipidemia stable. 8. Borderline morbid obesity with a body mass index of 39.9. Exercise, diet discussed. 9. Hypertension. Patient with a couple of episodes of hypotension postop so we have been deferring adding blood pressure medication to him but he has been pretty consistently elevated for the last 2 days. Will start low dose Norvasc and monitor.
[2018-07-18] MEDS: NORVASC PO SCH (14:26)
--- NOTE | 2018-07-18 17:29 | GENERAL SURGERY PROGRESS NOTE ---
DATE: 07/18/2018 SUBJECTIVE: He is feeling very well. His creatinine has started downtrending. He is making plenty of urine. His potassium is better. DOREEN drain is still somewhat cloudy. No ashley bile. White count was near normal yesterday at 11. Glucose has fluctuated widely, as high as 300, so his hemoglobin A1c was 10.6. Creatinine is [*].7 this morning. ASSESSMENT AND PLAN: This is a 52-year-old gentleman status post cholecystectomy for gangrenous cholecystitis purulence. He had acute kidney injury postoperatively. This is improving. We will plan to switch him to oral antibiotics tomorrow and if okay from a medical standpoint, we will let him go home tomorrow. cc: Bruce Ignacio MD
[2018-07-19] MEDS: ZOSYN 2.25 GM in NS 50 ML IV SCH ×2 (06:27→14:19)
[2018-07-19] MEDS: HUMULIN R SUBQ SCH ×2 (07:26→12:22)
[2018-07-19] MEDS: NS 1,000 ML IV SCH (07:26)
[2018-07-19 07:29] LABS: ALBUMIN 1.9 g/dL (3.5-5.0); CALCIUM 7.1 mg/dL (8.8-10.2); CREATININE 4.1 mg/dL (0.7-1.2); PHOSPHORUS 5.2 mg/dL (2.7-4.5); POTASSIUM 3.2 mmol/L (3.5-5.1)
[2018-07-19] MEDS: NORVASC PO SCH (09:35)
[2018-07-19] MEDS: LANTUS INSULIN SUBQ SCH (09:35)
[2018-07-19] MEDS: PERIDEX MT SCH (09:35)
[2018-07-19] MEDS: SODIUM BICARBONATE PO SCH (09:35)
--- NOTE | 2018-07-19 12:47 | PROGRESS NOTE ---
DATE: 07/19/2018 INTERVAL HISTORY: The patient is doing well. No new complaints. No acute events overnight. REVIEW OF SYSTEMS: A 12-point review of systems was negative except as per interval history. LABORATORY DATA: Sodium 140, potassium 3.2, bicarb 15, BUN 46, creatinine 4.1, glucose 185-311, phosphorus 5.2, albumin 1.9, calcium 11.0. VITAL SIGNS: T-max 98.9 degrees, pulse 74, respirations 22, blood pressure 165/80, O2 saturation 100% on room air. PHYSICAL EXAMINATION: General: No acute distress. Vitals: As above. HEENT: Normocephalic and atraumatic. Moist mucous membranes. No cervical adenopathy. Cardiovascular: Regular rate and rhythm. No murmurs, rubs, or gallops. Pulmonary: Clear to auscultation bilaterally. Abdomen: Soft, nontender, and nondistended. Drain remains in place in the right upper abdomen with surrounding bandage. Extremities: Peripheral pulses intact. No clubbing, cyanosis, or edema. Neurologic: Cranial nerves grossly intact. No focal deficits identified. Psychiatric: Normal mood and affect. Awake, alert, and oriented x3. Skin: No new rashes or lesions identified. ASSESSMENT AND PLAN: 1. Acute kidney injury on likely chronic kidney disease 3. Exact baseline unknown but creatinine 1.9 on admission. Significantly worsened postoperatively. Trended up to a max of 5.5. Now trending down over the last few days, down to 4.1. Nephrology following. Urine output good. No major electrolyte abnormalities. Suspect he is improved enough to consider discharge home with close followup and recheck labs but will await further nephrology recommendations. 2. Cholecystitis, status post laparoscopic cholecystectomy. Tolerating diet so far. Drain remains in place. Surgery on board and managing. 3. Diabetes mellitus. Glucose control improved with increase in basal bolus insulin. Control still not perfect but decreasing steroids which should help so we will not make any further changes to his insulin at this time. If the patient discharges home, would recommend sending him on 18 units of Lantus with close followup with his primary care physician. 4. Gout flare. Symptoms resolved with steroids, tapering steroids. If the patient discharges, would recommend discharge with Medrol Dosepak. 5. Hypokalemia, somewhat improved status post repletion. Still slightly low. Further replacement as per nephrology. 6. Hyperlipidemia, stable. 7. Obesity, borderline morbid obesity with body mass index of 39.9. Exercise and diet have been discussed. 8. Hypertension. Remains somewhat elevated but improved with starting Norvasc. Would recommend continuing Norvasc on discharge. 9. Disposition. As long as nephrology is happy with the progress of his acute kidney injury, then he is medically cleared for discharge whenever surgery is ready for him to go with the above medication recommendations.
[2018-07-19] MEDS ORDERED: KLOR-CON PO ONE (15:00)
[2018-07-19] MEDS ORDERED: KLOR-CON POWDER PACKET PO ONE (15:22)
[2018-07-19 17:46] VITALS: BP 135/80
--- NOTE | 2018-07-19 19:33 | NEPHROLOGY PROGRESS NOTE ---
DATE: 07/19/2018 DATE AND TIME: Date seen 07/19/2018. Time seen is 0640. SUBJECTIVE: Mr. Linares is resting quietly in bed. He has family who is at his bedside. He states that he is feeling better. OBJECTIVE: Vital Signs: Temperature 97.8, blood pressure 163/77, heart rate 56, respirations 16. He is on room air. Last recorded saturation 98%. He has had 2407 in. He has had 2200 out to void. LABORATORY DATA: Sodium 140, potassium 3.2, chloride 109, CO2 15, BUN 46, creatinine 4.1, glucose 181, anion gap is 16, calcium 7.1, phosphorus 5.2, albumin 1.9. Previous hemoglobin of 10.6. PHYSICAL EXAMINATION: General: This is a 52-year-old male. He is resting quietly in bed. He appears in no acute distress. Skin: Warm and dry. HEENT: Normocephalic, atraumatic. Conjunctiva is pale pink. He has POONAM. Mucous membranes are dry. Neck: Supple. Trachea midline. No evidence of JVD. Cardiovascular: Regular rate and rhythm. He is without murmur or gallop. Lungs: Clear to auscultation bilaterally. Equal excursion. He is on room air. Abdomen: Soft, nontender. Positive bowel sounds. Genitourinary: Not inspected. Adequate urine output documented. Extremities: Have 1+ lower extremity edema. No clubbing or cyanosis. Neurologic: He is alert and oriented x 3. ASSESSMENT AND PLAN: 1. Acute on chronic kidney disease stage 3. Patient's BUN and creatinine have continued to slowly improve. Creatinine is down to 4.1 with a BUN of 46. Adequate urine output documented. No indications for intervention. 2. Electrolytes and acid-base balance. Patient continues hypokalemic. We will give him one dose of potassium today. 3. Acid-base balance. Patient remains acidotic. We will start him on oral sodium bicarbonate and monitor labs. 4. Anemia. This remains stable. 5. Acute cholangitis following cholecystectomy. This is followed by Surgery and the Primary Care Team. I would like to thank you for allowing us to follow with this patient. Dictated by ELIZABETH Guevara for Davide Edouard MD cc: Kristyn ELIZABETH Arevalo MD
--- NOTE | 2018-07-19 20:00 | GENERAL SURGERY PROGRESS NOTE ---
DATE: 07/19/2018 SUBJECTIVE: He is overall feeling well. His creatinine is down trending. He is making urine. OBJECTIVE: His abdomen is soft. Incisions are intact. DOREEN drainage is dark, serosanguineous. No fever. No tachycardia. I reviewed his labs. His creatinine is now 4.1, glucose 180s to as high as 237. ASSESSMENT AND PLAN: This is a 52-year-old gentleman who is status post cholecystectomy. He has a drain in place. He did have acute kidney injury, acute on chronic, postoperatively. This seems to be getting better. Neurologist and the hospitalist are okay with him being discharged as am I from my surgical standpoint. We will see him back next week for drain removal and staple removal. Otherwise, he completed his course of antibiotics. I talked to the hospitalist about his medication adjustments. They are making arrangements for that. cc: Bruce Ignacio MD
[2018-07-20] MEDS ORDERED: PREDNISONE PO SCH (09:00)
== END 2018-07-19 17:47 | disposition home or self-care (01) | DRG 417 ==
LOC: ED 18:49 → 4N 07-13 01:38 → SUATTDRO 07-13 01:38 → 4N 07-17 22:02
PROVIDERS: ADMIT Internal Medicine; ATTEND Surgery
CPT/HCPCS: 74176; 76705; 76770; 80053; 80061; 80069; 81001; 82570; 82948; 83036; 83605; 83690; 83735; 84300; 84550; 85025; 87040; 87088; 87205; 88304; 94761; 94799; 96365; 96368; 96375; 96376; 99285; A9270; C1751; J0330; J1170; J1815; J2270; J2370; J2405; J2543; J2920; J3010; J7030; J7120; Q9966; Q9967; XXXXX